=== PATIENT | female | born 1950 | race Caucasian/White ===

== ENCOUNTER → 2021-12-25 | Outpatient (CLI) | payer MEDICARE ==
[~2021-12-25] MED LIST: ACCUPRIL40 MG PO; ALLOPURINOL100 MG PO; AUGMENTIN 875-1 EACH PO; CEPHALEXIN500 MG PO; CLINDAMYCIN HC300 MG PO; EFFEXOR XR37.5 MG PO; ELIQUIS 5 MG TAB5 MG PO; HYDRALAZINE HCL50 MG PO; HYDROCHLOROTH12.5 MG PO; HYDROCHLOROTHIA25 MG PO; INDOMETHACIN25 MG PO; KEFLEX500 MG PO; METOPROLOL TART25 MG PO; METOPROLOL TART50 MG PO; PLAQUENIL 200200 MG PO; PRAVACHOL40 MG PO; PREDNISONE 10 M10 MG PO; TYLENOL WITH C1 EACH PO; VENLAFAXINE H37.5 M1 PO
== END ==
LOC: RAD 10:56
DX: M54.2 Cervicalgia (principal); M47.812 Spondylosis without myelopathy or radiculopathy, cervical region; M47.814 Spondylosis without myelopathy or radiculopathy, thoracic region
CPT/HCPCS: 72050; 72072